=== PATIENT | female | born 1975 | race Caucasian/White ===

== ENCOUNTER 2025-02-13 08:49 | Outpatient (CLI) | payer OTHER, SELFPAY ==
--- OUTSIDE RECORDS SUMMARY | 2025-02-13 08:54 | XMS_ITS | Clinical Summary ---
Author Organization [facility] Address [address] [facility] [place] [address] Phone Care Team Providers Care Supervisor Correspondence Section Name Role Phone Donaldo Chavez MD Primary Care Provider [phone] Camille Juan MD Unavailable [phone] Martín Larios MD Unavailable Tara López MD Unavailable Allergies Active Allergy Reactions Criticality Noted Date Comments Fish Allergy Shortness of Breath,Swelling Medications atorvastatin (LIPITOR) 10 MG TabletIndications: Mixed hyperlipidemia Take 1 Tablet by mouth daily. 90 Tablet 3 01/27/20 24 Active amLODIPine (NORVASC) 5 MG TabletIndications: Hypertension, essential TAKE 1 TABLET BY MOUTH DAILY 90 Tablet 1 09/02/19 25 Active glipiZIDE (GLUCOTROL XL) 5 MG TABLET SR 24 HRIndications:Type 2 diabetes mellitus without complication, without long-term current use of insulin TAKE 1 TABLET BY MOUTH DAILY 90 Tablet 1 10/30/19 25 Active lisinopril-hydroCH LOROthiazide (PRINZIDE, ZESTORETIC) 20-12.5 MG TabletIndications: Hypertension, essential TAKE 2 TABLETS BY MOUTH DAILY 180 Tablet 1 03/17/20 25 Active metFORMIN (GLUCOPHAGE-XR) 500 MG TABLET SR 24 HRIndications:Type 2 diabetes mellitus without complication, without long-term current use of insulin TAKE 2 TABLETS BY MOUTH TWICE DAILY 360 Tablet 1 01/01/20 25 Active semaglutide,0.25 or 0.5MG/DOS, (OZEMPIC) 2 MG/3ML Solution Pen-injectorIndica tions:Type 2 diabetes mellitus without complication, without long-term current use of insulin 0.5 mg by Subcutaneous route once a week. 3 mL 1 09/10/19 25 025 Discontin ued(Side effects) Active Problems Problem Noted Date Diagnosed Date ALIDA (obstructive sleep apnea) 08/13/2024 Irritable bowel syndrome with diarrhea Anxiety 11/23/2021 Iron deficiency anemia 06/26/2021 Type 2 diabetes mellitus wit hout complication, without long-term current use of insulin 02/21/2019 Mixed hyperlipidemia 08/15/2016 Class 3 severe obesity due t o excess calories with serious comorbidity and body mass index (BMI) of 45.0 to 49.9 in adult Hypertension, essential Resolved Problems Problem Noted Date Diagnosed Date Resolved Date Pneumonia of right upper lob e due to infectious organism 05/23/2024 08/14/2024 Ventral hernia with bowel obstruction 11/17/2020 11/17/2020 Overview (11/17/2020): Last Assessment & Plan: Continue diet as tolerates. From my standpoint it is okay if she returns to work as long she has light duty. She is set to see Plastic surgery this week as well. I have asked her to double check how long they would like her on lifting restrictions. Her last drain was removed yesterday. She will follow up with plastics for staple removal going forward. She will call us back with any further questions and concerns. She can continue to wear the abdominal binder for comfort. Incisional hernia 01/24/2017 Encounters Date Type Department Care Team Description 02/08/2025 8:55 AM CDT - 02/08/2025 11:59 PM CDT [facility] [address] [place] [address] Donaldo Chavez MD Discharge Disposition: Discharged to home or Selfcare 02/08/2025 Travel 02/07/2025 10:10 AM CDT Lab [facility] [place] [address] Lab, [place] [facility] Hypertension, essential; Type 2 diabetes mellitus without complication, without long-term current use of insulin; Mixed hyperlipidemia Discharge Disposition: Discharged to home or Selfcare 02/07/2025 8:15 AM CDT Office Visit [facility] [facility] [place] [phone] Donaldo Chavez MD Hypertension, essential (Primary Dx); Encounter for screening mammogram for breast cancer; Mixed hyperlipidemia; Type 2 diabetes mellitus without complication, without long-term current use of insulin; ALIDA (obstructive sleep apnea) Discharge Disposition: Discharged to home or Selfcare 02/07/2025 Results Follow-Up [facility] [address] [facility] [place] [place] [address] Donaldo Chavez MD BASIC METABOLIC PANEL W/ CALCIUM TOTAL, LIPID PANEL, HEMOGLOBIN A1C W/ ESTIMATED GLUCOSE 02/05/2025 Travel 12/29/2024 Refill [facility] [facility] [place] [place] [address] Nahun Ellison, [facility] Medication Refill from Last 3 Months Immunizations Immunization Administration Dates Next Due COVID-19, MRNA, LNP-S, BIVAL ENT , PFIZER, 30 MCG/0.3 ML (12+ Y/O) 06/23/2022 Covid-19, Mrna, Lnp-s, PF, 1 00 mcg/0.5 mL Dose (Moderna) 11/03/2020,09/25/2020 Influenza Vaccine 05/15/2024 Influenza Vaccine greater than 3 yrs 06/19/2015 Influenza Vaccine, Quadrivalent, PF 12/0 08/2022,06/22/2022,05/25/2021,2018,09/11/2014 Pneumococcal Vaccine Adult - 23 Valent 07/11/2019 Sars-cov-2 (Covid-19) Vaccin e, Unspecified 05/15/2024 TDAP Vaccine 02/19/2019 Tetanus Toxoid, Unspecified Formulation 08/15/2008 Family History Medical History Relation Name Comments No Known Problems Brother Anxiety disorder Daughter 1 Autism Daughter 1 Depression Daughter 1 Suicide Attempts Daughter 1 No Known Problems Daughter 2 High Cholesterol Father Hypertension Father No Known Problems Maternal Grandfather No Known Problems Maternal Grandmother Diabetes Mother Type II Hypertension Mother Cancer Paternal Grandfather Lung Dementia Paternal Grandmother No Known Problems Son Relation Name Status Comments Brother Alive Daughter 1 Alive Daughter 2 Alive Father Alive Maternal Grandfather Maternal Grandmother Mother Alive Paternal Grandfather Alive Paternal Grandmother Son Alive Social History Tobacco Use Types Packs/Day Years Used Date Smoking Tobacco: Former Cigarettes 1 17 2008 Smokeless Tobacco: Never Tobacco Cessation:Counseling Given: Not Answered Alcohol Use Standard Drinks/Week Comments No 0 (1 standard drink = 0.6 oz pur e alcohol) Social [employer] Utilities Answer Date Recorded In the past 12 months has [employer], gas, oil, or water Drobo threatened to shut off services in your home? No 01/26/2024 Social Connection and Isolation Panel Answer Date Recorded In a typical week, how many times do you talk on the phone with family, friends, or neighbors? More than three times a week 01/26/2024 How often do you get togethe r with friends or relatives? Twice a week 01/26/2024 How often do you attend [facility] or [facility] services? 1 to 4 times per year 01/26/2024 Do you belong to any clubs o r organizations such as christian groups, unions, fraternal or athletic groups, or school groups? Yes 01/26/2024 How often do you attend meet ings of the clubs or organizations you belong to? 1 to 4 times per year 01/26/2024 Are you , , di vorced, , never , or living with a partner? 01/26/2024 AUDIT-C Answer Date Recorded Q1: How often do you have a drink containing alcohol? Never 01/26/2024 Q2: How many drinks containi ng alcohol do you have on a typical day when you are drinking? Patient does not drink Q3: How often do you have si x or more drinks on one occasion? Never 01/26/2024 Overall Financial Resource Strain (CARDIA) Answe r Date Recorded How hard is it for you to pa y for the very basics like food, housing, medical care, and heating? Not very hard 01/26/2024 PHQ-2 Answer Date Recorded Total Score - Questions 1-9 0 01/14 [facility] Occupat ional [facility] - Occupational Stress Questionnaire Answer Date Recorded Do you feel stress - tense, restless, nervous, or anxious, or unable to sleep at night because your mind is troubled all the time - these days? Only a little 01/26/2024 Exercise Vital Sign Answer Date Recorde d On average, how many days pe r week do you engage in moderate to strenuous exercise (like a brisk walk)? 3 days 01/26/2024 On average, how many minutes do you engage in exercise at this level? 30 min 01/26/2024 Hunger Vital Sign Answer Date Recorded Within the past 12 months, y ou worried that your food would run out before you got the money to buy more. Never true 01/26/20 24 Within the past 12 months, t he food you bought just didn't last and you didn't have money to get more. Never true 01/26/2024 PRAPARE - Transportation Answer Date Re corded In the past 12 months, has l ack of transportation kept you from medical appointments or from getting medications? No 01/13 In the past 12 months, has l ack of transportation kept you from meetings, work, or from getting things needed for daily living? No 01/26/2024 Housing Stability Vital Sign Answer Jordan e Recorded In the last 12 months, was t here a time when you were not able to pay the mortgage or rent on time? No 01/26/2024 In the past 12 months, how m any times have you moved where you were living? 0 01/26/2024 At any time in the past 12 m [facility], were you homeless or living in a longterm (including now)? No 01/26/2024 Education Answer Date Recorded What is the highest level of school you have completed or the highest degree you have received? Associate degree: occupational, technical, or vocational program 01/04/2023 Sexually Active Control Partners Comments Yes Male Comments No Sex and Gender Information Value Date Recorded Sex Assigned at Female 07/23/2024 5:47 PM [employer]EL [employer]ER Legal Sex Female 9:39 PM CDT Gender Identity Female 07/23/2024 5:47 PM [employer]EL [employer]ER Sexual Orientation Straight 07/23/2024 5: 47 PM J[employer]EL FLAT SURFACER Last Filed Vital Signs Vital Sign Reading Time Taken Comments Blood Pressure 122/80 02/07/2025 7:58 AM CDT Pulse 101 02/07/2025 7:58 AM CDT Temperature 36.7 C (98.1 F) 02/07/2025 7:58 AM CDT Respiratory Rate 20 02/07/2025 7:58 AM CDT Oxygen Saturation 95% 02/07/2025 7:58 AM CDT Inhaled Oxygen Concentration - - Weight 132.4 kg (291 lb 12.8 oz) 02/07/2025 7:58 AM CDT Height 170.2 cm (5' 7) 02/07/2025 7:58 AM CDT Body Mass Index 45.7 02/07/2025 7:58 AM CDT Plan of Treatment Upcoming Encounters Date Type Department Care Team (Late st Contact Info) Description 08/29/2025 8:45 AM JEWEL FLAT SURFACER Office Visit [facility] - [place] [place] [phone] Donaldo Chavez MD [address] [place], [place] [id number] Health Maintenance Due Date Last Done Comments Diabetes: Foot Exam 1976 Hepatitis B Immunization (1 of 3 - 19+ 3-dose series) 10/19/1995 Mammogram 01/30/2019 01/30/2018, 01/13, 01/17/2017, Additional history exists Cologuard 2021 Immunochemical Fecal Occult Blood 2021 Diabetes: Eye Exam 01/26/2025 01/27/2024 Influenza Immunization (#1) 2025 10/0 08/2023, 07/15/2023, 06/22/2022, Additional history exists Diabetes: Hemoglobin A1c 08/09/202502/07/ 025, 08/09/2024, 01/27/2024, Additional history exists Diabetes: Nephropathy Screening 08/09/2025 08/09/2024, 01/27/2024, 07/15/2023, Additional history exists Colonoscopy 10/30/2027 10/29/2022 Colorectal Cancer Screening 10/30/2027 Td Immunization Every 10 Years (Adults With 1 Tdap) 02/19/2029 02/19/2019 Pneumococcal Immunization Combined (2 of 2 - PCV) 2041 07/11/2019 Postponed from 07/11/2020 (Lower Priority for Now) Respiratory Syncytial Virus (RSV) Immunization (Adult) (1 - 1-dose 75+ series) 10/19/2051 Cervical Cancer Screening (CCS) Discontinued Pap Smear Discontinued 03/19/2010 Discussion re Starting/Frequency of Mammograms Completed 01/30/2018, 01/30/2018, 01/17/2017, Additional history exists Hepatitis C Virus (HCV) Screening Completed 07/15/2023 SARS-COV-2 Immunization Completed 05/15/20 24, 06/23/2022, 06/24/2021, Additional history exists HPV/Cotest Discontinued Human Papillomavirus (HPV) Immunization Aged Out No longer eligible based on patient's age to complete this topic Meningococcal Immunization (ACWY) Aged Out No longer eligible based on patient's age to complete this topic Rotavirus Immunization Aged Out No lo nger eligible based on patient's age to complete this topic Procedures Procedure Name Priority Date/Time Associated Diagnosis Comments HEMOGLOBIN A1C W/ ESTIMATED GLUCOSE Routine 02/07/2025 8:35 AM CDT Type 2 diabetes mellitus without complication, without long-term current use of insulin LIPID PANEL Routine 02/07/2025 8:35 AM CDT Mixed hyperlipidemia Type 2 diabetes mellitus without complication, without long-term current use of insulin BASIC METABOLIC PANEL W/ CALCIUM TOTAL Routine 02/07/2025 8:35 AM CDT Hypertension, essential Type 2 diabetes mellitus without complication, without long-term current use of insulin CMP (COMPREHENSIVE METABOLIC PANEL) Routine 08/09/2024 8:37 AM JEWEL FLAT SURFACER Type 2 diabetes mellitus without complication, without long-term current use of insulin (HCC) Hypertension, essential Mixed hyperlipidemia Class 3 severe obesity due to excess calories with serious comorbidity and body mass index (BMI) of 45.0 to 49.9 in adult (HCC) DIABETIC BILATERAL RETINAL IMAGING WITH COMPUTERIZED INTERPRETATION Routine 01/27/2024 7:54 AM CDT Type 2 diabetes mellitus without complication, without long-term current use of insulin (HCC) HEPATITIS C ANTIBODY Routine 07/15/2023 10:48 AM JEWEL FLAT SURF[employer]ER Type 2 diabetes mellitus without complication, without long-term current use of insulin (HCC) ULISSES SCREENING BILATERAL DIGITAL W CAD W MICHAEL Routine 01/30/2018 PATHOLOGY CYTOLOGY SEAFOOD AND SERVICE MEAT MANAGER Routine 03/19/2010 from Last 3 Months or Most Recently Relevant to Health Maintenance Results * (ABNORMAL) HEMOGLOBIN A1C W/ ESTIMATED GLUCOSE (02/07/2025 8:35 AM CDT) HGB-A1C 6.5(H) 4.0 - 6.0 % 02/07/2025 12:13 PM CDT [facility] Est Average Glucose 139.9 mg/dL 02/07/2025 12:13 PM CDT [facility] Blood Venipuncture / Unknown 02/07/2025 8:35 AM CDT 02/07/2025 8:35 AM CDT Narrative [facility] - 02/07/2025 12:13 PM CDT HEMOGLOBIN A1C: DIABETIC PATIENTS: WELL-CONTROLLED: 6.2 - 7.0 INTERMEDIATE WELL-CONTROLLED: 7.0 - 9.0 POORLY-CONTROLLED: >9.0 Specimens containing greater than 5% of Hemoglobin F may result in lower than expected % HbA1C results. us Donaldo Chavez MD CHEMISTRY ORDERABLES Roxy owens Result [facility] [address] [place] [address] * (ABNORMAL) LIPID PANEL (02/07/2025 8:35 AM CDT) CHOLESTEROL 140 <200 mg/dL 02/07/2025 12:08 PM CDT [facility] TRIGLYCERIDES 177(H) <150 mg/dL 02/07/2025 12:08 PM CDT [facility] HDL CHOLESTEROL 29(L) >40 mg/dL 12:08 PM CDT [facility] LDL 76 <130 mg/dL 02/07/2025 12:08 PM CDT [facility] VLDL 35 10 - 50 mg/dL 02/07/2025 12:08 PM CDT [facility] CHOL/HDL RATIO 4.8(H) 0.0 - 4.4 02/07/2025 12:08 PM CDT [facility] NON-HDL CHOLESTEROL 111 <130 mg/dL 02/07/2025 12:08 PM CDT [facility] IS THE PATIENT REQUIRED TO BE FASTING? Yes 02/07/2025 12:08 PM CDT [facility] HAS THE PATIENT BEEN FASTING? Yes 02/07/2025 12:08 PM CDT [facility] Blood Venipuncture / Unknown 02/07/2025 8:35 AM CDT 02/07/2025 8:35 AM CDT us Donaldo Chavez MD CHEMISTRY ORDERABLES Roxy owens Result [facility] [address] [place] [address] * (ABNORMAL) BASIC METABOLIC PANEL W/ CALCIUM TOTAL (02/07/2025 8:35 AM CDT) SODIUM 138 136 - 145 mmol/L 02/07/2025 12:08 PM CDT [facility] POTASSIUM 4.5 3.5 - 5.1 mmol/L 02/07/2025 12:08 PM CDT [facility] CHLORIDE 102 98 - 107 mmol/L 02/07/2025 12:08 PM CDT [facility] CO2, VENOUS 26 22 - 30 mmol/L 02/07/2025 12:08 PM CDT [facility] ANION GAP 14.5 <18.0 mmol/L 02/07/2025 12:08 PM CDT [facility] GLUCOSE 117(H) 70 - 99 mg/dL 02/07/2025 12:08 PM CDT [facility] BUN 19(H) 5 - 18 mg/dL 02/07/2025 12:08 PM CDT [facility] CREATININE, BLOOD 0.63 0.60 - 1.00 mg/dL 02/07/2025 12:08 PM CDT [facility] BUN/CREATININE RATIO 30(H) 12 - 20 ratio 02/07/2025 12:08 PM T [facility] CALCIUM 9.8 8.7 - 10.5 mg/dL 02/07/2025 12:08 PM CDT [facility] IS THE PATIENT REQUIRED TO BE FASTING? No 02/07/2025 12:08 PM CDT [facility] GFR, ESTIMATED >60 >=60 02/07/2025 12:08 PM CDT [facility] Comment: Creatinine Clearance is the preferred criteria for selecting drug dose adjustments in renally impaired patients. The GFR is provided as additional pertinent clinical information. GFR is reported in mL/min/1.73 sq m. Calculation based on the Chronic Kidney Disease Epidemiology Collaboration (CKD- EPI) equation refit without adjustment for race. GFR, EST. >60 >=60 025 12:08 PM CDT [facility] GFR, EST. NONAFRICAN >60 >=60 02/07/2025 12:08 PM CDT [facility] Blood Venipuncture / Unknown 02/07/2025 8:35 AM CDT 02/07/2025 8:35 AM CDT us Donaldo Chavez MD CHEMISTRY ORDERABLES Roxy owens Result [facility] [address] [place] [address] * (ABNORMAL) CMP (COMPREHENSIVE METABOLIC PANEL) (08/09/2024 8:37 AM JEWEL FLAT SURFACER) SODIUM 140 136 - 145 mmol/L 08/09/2024 12:49 PM [facility] POTASSIUM 5.0 3.5 - 5.1 mmol/L 08/09/2024 12:49 PM [facility] CHLORIDE 99 98 - 107 mmol/L 08/09/2024 12:49 PM [facility] CO2, VENOUS 35(H) 22 - 30 mmol/L 08/09/2024 12:49 PM [facility] ANION GAP 11.0 <18.0 mmol/L 08/09/2024 12:49 PM [facility] GLUCOSE 240(H) 70 - 99 mg/dL 08/09/2024 12:49 PM [facility] BUN 14 5 - 18 mg/dL 08/09/2024 12:49 PM [facility] CREATININE, BLOOD 0.80 0.60 - 1.00 mg/dL 08/09/2024 12:49 PM [facility] BUN/CREATININE RATIO 18 12 - 20 ratio 08/09/2024 12:49 PM [facility] TOTAL PROTEIN 7.3 6.3 - 8.2 g/dL 08/09/2024 12:49 PM [facility] ALBUMIN 4.1 3.5 - 5.0 g/dL 08/09/2024 12:49 PM [facility] A/G RATIO 1.3 1.0 - 2.2 08/09/2024 12:49 PM [facility] CALCIUM 10.0 8.7 - 10.5 mg/dL 08/09/2024 12:49 PM [facility] T BILI 0.8 0.2 - 1.2 mg/dL 08/09/2024 12:49 PM JEWEL FLAT SURFACER [facility] SGOT (AST) 14 5 - 34 U/L 08/09/2024 12:49 PM JEWEL FLAT SURFACER [facility] SGPT (ALT) 24 0 - 55 U/L 08/09/2024 12:49 PM [facility] ALKALINE PHOSPHATASE 74 40 - 150 U/L 08/09/2024 12:49 PM JEWEL FLAT SURFACER [facility] IS THE PATIENT REQUIRED TO BE FASTING? Yes 08/09/2024 12:49 PM JEWEL FLAT SURFACER [facility] HAS THE PATIENT BEEN FASTING? Yes 08/09/2024 12:49 PM JEWEL FLAT SURFACER [facility] GFR, ESTIMATED >60 >=60 08/09/2024 12:49 PM [facility] Comment: Creatinine Clearance is the preferred criteria for selecting drug dose adjustments in renally impaired patients. The GFR is provided as additional pertinent clinical information. GFR is reported in mL/min/1.73 sq m. Calculation based on the Chronic Kidney Disease Epidemiology Collaboration (CKD- EPI) equation refit without adjustment for race. GFR, EST. >60 >=60 024 12:49 PM [facility] GFR, EST. NONAFRICAN >60 >=60 08/09/2024 12:49 PM [facility] Blood Venipuncture / Unknown 08/09/2024 8:37 AM JEWEL FLAT SURFACER 08/09/2024 8:37 AM JEWEL FLAT SURFACER us Nahun Ellison PAC CHEMISTRY ORDERABLES Final R esult [facility] [address] [place] [address] * (ABNORMAL) DIABETIC BILATERAL RETINAL IMAGING WITH COMPUTERIZED INTERPRETATION (01/27/2024 7:54 AM CDT) DIABETIC BILATERAL DIGITAL RETINAL IMAGING Diabetic Retinopathy Detected: ETDRS level 35 or higher and/or Diabetic Macular Edema(A) [facility] Comment: Next Steps: Refer to cabinet professional IDx Submission ID: [id number] Results were produced by a system that provides an artificial intelligence (AI) interpretation A positive result indicates a high risk of diabetic retinopathy with a severity of ETDRS level 35 or higher and/or macular edema. IDx-DR diabetic retinopathy exam does not replace a comprehensive eye exam. Other 01/27/2024 7:54 AM CDT Nahun Ellison PAC OUTPT PROCEDURE ORDERABLES F inal Result EXTERNAL EKG [facility] * HEPATITIS C ANTIBODY (07/15/2023 10:48 AM JEWEL FLAT SURFACER) hepatitis C antibody 0.13 <1 S/[facility] [place] [id number] B 07/16/2023 12:37 AM JEWEL FLAT SURFACER [facility] Comment: Signal/Cutoff ratio < 0.79 is Nondetected Signal/Cutoff ratio 0.80-0.99 is Grayzone Signal/Cutoff ratio > 0.99 is Detected Supplemental assays are recommended if signal/cutoff ratio is >/=1.00. Signal/cutoff ratio result >/= 5.00 is 97% predictive of positivity for recombinant immunoblot assay (RIBA) and will be reported to the [place] Department of Public Health as required. Blood Venipuncture / Unknown 07/15/2023 10:48 AM JEWEL FLAT SURFACER 07/15/2023 10:48 AM JEWEL FLAT SURFACER Donaldo Chavez MD CHEMISTRY ORDERABLES Roxy l Result Performing Organization Address City/[facility]/ZIP Co de Phone Number [facility] [address] [place] [address], [place] * ULISSES SCREENING BILATERAL DIGITAL W CAD W MICHAEL (01/30/2018) Anatomical Region Laterality Modality breast Bilateral Mammography Camille Juan MD IMG MAMMO ORDERABLES Final Resu lt * PATHOLOGY CYTOLOGY SEAFOOD AND SERVICE MEAT MANAGER (03/19/2010) Specimen of unknown material (specimen) Janee A Chapin CONSERVATION SCIENCE OFFICER, OFFICE CORRESPONDENT PATHOLOGY/CYTOLOGY ORDER DHRUV Final Result from Last 3 Months or Most Recently Relevant to Health Maintenance Insurance [place] [address] Care Teams Supervisor Correspondence Section Relationship Specialty Start Date End Date Donaldo Chavez MD [address] [place] [address] PCP - General Internal Medicine 06/30/15 Camille Juan MD [address] [place] [address] Consulting Physician Obstetrics & Gynecology 01/24/17 Martín Larios MD [address] [facility] [address] [place] [address] Consulting Physician Colon and Rectal Surgery 11/25/22 Tara López MD [address] [place] [address] [facility] [address] [place] [address] Consulting Physician Sleep Medicine 02/07/25
--- OUTSIDE RECORDS SUMMARY | 2025-02-13 08:54 | XMS_ITS | Encounter Summary ---
Author Organization [facility] Address [address] [place] [address] Phone Care Team Providers Care Director For Beauty School Name Role Phone Donaldo Chavez MD Primary Care Provider [phone] Camille Juan MD Unavailable [phone] Martín Larios MD Unavailable Tara López MD Unavailable Reason for Visit * Reason Onset Date Comments Medication Refill 09/25/2020 Encounter Details Date Type Department Care Team (Late st Contact Info) Description 09/25/2020 Telephone [facility] [address] [place] [address] Donaldo Chavez MD [address] [place] [address] Medication Refill Social History Tobacco Use Types Packs/Day Years Used Date Smoking Tobacco: Former Cigarettes 1 16 Smokeless Tobacco: Never Alcohol Use Standard Drinks/Week Comments No 0 (1 standard drink = 0.6 oz pur e alcohol) Social PHQ-2 Answer Date Recorded Total Score - Questions 1-9 0 03/15 Education Answer Date Recorded What is the highest level of school you have completed or the highest degree you have received? Associate degree: academic program 03/26/2020 Comments No Sex and Gender Information Value Date Recorded Sex Assigned at Female 07/23/2024 5:47 PM CO FOUNDER & CEO Legal Sex Female 9:39 PM CDT Gender Identity Female 07/23/2024 5:47 PM CO FOUNDER & CEO Sexual Orientation Straight 07/23/2024 5: 47 PM CO FOUNDER & CEO documented as of this encounter Miscellaneous Notes * Telephone Encounter - Rupal Genao - 09/25/2020 4:28 PM CST Images from the original note were not included. FOUNDER & CEO documented in this encounter Plan of Treatment Upcoming Encounters Date Type Department Care Team (Late st Contact Info) Description 08/29/2025 8:45 AM CO FOUNDER & CEO Office [facility] - Primary Care - [place] [address] [place] [address] Donaldo Chavez MD [address] [place] [address] documented as of this encounter Visit Diagnoses Not on filedocumented in this encounter Additional Health Concerns Infection Onset Date Last Indicated Resolved Time COVID - 19 08/25/2021 08/25/2021 08/25/2021 9:59 AM CO FOUNDER & CEO COVID - 19 08/25/2021 08/25/2021 09/14/2021 12:1 6 AM CO FOUNDER & CEO Assessment Noted Time PHQ-9 Depression Total Score: 0 03/26/20 20 11:00 AM CDT documented as of this encounter Care Teams Director For Beauty School Relationship Specialty Start Date End Date Donaldo Chavez MD [address] [place] [address] PCP - General Internal Medicine 06/30/15 Camille Juan MD [address] [place] [address] Consulting Physician Obstetrics & Gynecology 01/24/17 Martín Larios MD #2 [facility] [address] [place] [address] Consulting Physician Colon and Rectal Surgery 11/25/22 Tara López MD [address] [place] [address] [address] [place] [address] Consulting Physician Sleep Medicine 02/07/25 documented as of this encounter
--- OUTSIDE RECORDS SUMMARY | 2025-02-13 08:55 | XMS_ITS | Encounter Summary ---
Author Organization [facility] Address [address] [place] [address] Phone Care Team Providers Care Physician Primary Care Sports Medicine Name Role Phone Donaldo Chavez MD Primary Care Provider [phone] Camille Juan MD Unavailable [phone] Martín Morales MD Unavailable Tara López MD Unavailable Reason for Visit * Reason Comments Medication Refill Encounter Details Date Type Department Care Team (Late st Contact Info) Description 03/05/2022 Refill [facility] - Primary Care - [place] [address] [place] [address] Donaldo Chavez MD [address] [place] [address] Medication Refill Social History Tobacco Use Types Packs/Day Years Used Date Smoking Tobacco: Former Cigarettes 1 16 Smokeless Tobacco: Never Alcohol Use Standard Drinks/Week Comments No 0 (1 standard drink = 0.6 oz pur e alcohol) Social PHQ-2 Answer Date Recorded Total Score - Questions 1-9 0 11/13 Education Answer Date Recorded What is the highest level of school you have completed or the highest degree you have received? Some college, no degree 11/23/2021 Comments No Sex and Gender Information Value Date Recorded Sex Assigned at Female 07/23/2024 5:47 PM STEEL ROD BUSTER Legal Sex Female 9:39 PM CDT Gender Identity Female 07/23/2024 5:47 PM STEEL ROD BUSTER Sexual Orientation Straight 07/23/2024 5: 47 PM STEEL ROD BUSTER COVID-19 Exposure Response Date Recorded In the last 10 days, have yo u been in contact with someone who was confirmed or suspected to have Coronavirus/COVID-19? No / Unsure 02/19/2022 8:53 AM CDT documented as of this encounter Miscellaneous Notes * Telephone Encounter - Zari Mon RN - 03/05/2022 8:00 AM CDT Refill request too soon. documented in this encounter Plan of Treatment Upcoming Encounters Date Type Department Care Team (Late st Contact Info) Description 08/29/2025 8:45 AM STEEL ROD BUSTER Office Visit [facility] - Primary Care - [place] [address] [place] [address] Donalod Chavez MD [address] [place] [address] documented as of this encounter Visit Diagnoses Diagnosis Type 2 diabetes mellitus without complication, without long-term current use of insulin documented in this encounter Additional Health Concerns Assessment Noted Time PHQ-9 Depression Total Score: 0 11/18/19 21 10:00 AM CDT documented as of this encounter Care Teams Physician Primary Care Sports Medicine Relationship Specialty Start Date End Date Donaldo Chavez MD [address] [place] [address] PCP - General Internal Medicine 06/30/15 Camille Juan MD [address] [place] [address] Consulting Physician Obstetrics & Gynecology 01/24/17 Martín Larios MD #2 [facility] [address] [place] [address] Consulting Physician Colon and Rectal Surgery 11/25/22 Tara López MD 4 [facility] [address] [place] [address] Consulting Physician Sleep Medicine 02/07/25 documented as of this encounter
--- OUTSIDE RECORDS SUMMARY | 2025-02-13 08:55 | XMS_ITS | Encounter Summary ---
Author Organization [facility] Address [address] [place] [address] Phone Care Team Providers Care Firer Electric Locomotive Name Role Phone Donaldo Chavez MD Primary Care Provider [phone] Camille Juan MD Unavailable [phone] Martín Morales MD Unavailable Tara López MD Unavailable Reason for Visit * Reason Comments Medication Refill Encounter Details Date Type Department Care Team (Late st Contact Info) Description 02/15/2022 Refill [facility] - Primary Care - [place] [address] [place] [address] Donaldo Chavez MD [address] [place] [address] Medication Refill Social History Tobacco [...] Sex Assigned at Female 07/23/2024 5:47 PM WARP DRAWER Legal Sex Female 9:39 PM CDT Gender Identity Female 07/23/2024 5:47 PM WARP DRAWER Sexual Orientation Straight 07/23/2024 5: 47 PM WARP DRAWER documented as of this encounter Miscellaneous Notes * Telephone Encounter - Donaldo Chavez MD - 02/16/2022 8:31 AM CDT Refill request approved. * Telephone Encounter - Zari Mon RN - 02/16/2022 8:17 AM CDT Medication failed the protocol, provider to review and approve the medication order if appropriate. Requested Prescriptions Pending Prescriptions Disp Refills FLUoxetine (PROzac) 10 MG Capsule [Pharmacy Med Name: FLUOXETINE 10MG CAPSULES] 90 Capsule 0 Sig: Take 1 Capsule by mouth daily. SSRI (6 Month Refill Only) Protocol Failed - 02/15/2022 3:30 AM Failed - Patient has established therapy with SSRI for at least 6 months Passed - Visit with relevant provider in past 6 months or upcoming 90 days Recent Visits Date Type Provider Dept 11/23/21 Office Visit Donaldo Chavez MD [facility] Showing recent visits within past 182 days and meeting all other requirements Future Appointments No visits were found meeting these conditions. Showing future appointments within next 90 days and meeting all other requirements Passed - Has an encounter in the past 6 months with a depression, anxiety, adjustment disorder, OCD, or PTSD visit diagnosis documented in this encounter Plan of Treatment Upcoming Encounters Date Type Department Care Team (Late st Contact Info) Description 08/29/2025 8:45 AM WARP DRAWER Office Visit [facility] - Primary Care - [place] [address] [place] [address] Donaldo Chavez MD [address] [place] [address] documented as of this encounter Visit Diagnoses Diagnosis Anxiety Anxiety state, unspecified documented in this encounter Additional Health Concerns Assessment Noted Time PHQ-9 Depression Total Score: 0 11/18/19 21 10:00 AM CDT documented as of this encounter Care Teams Firer Electric Locomotive Relationship Specialty Start Date End Date Donaldo Chavez MD [address] [place] [address] PCP - General Internal Medicine 06/30/15 Camille Juan MD [address] [place] [address] Consulting Physician Obstetrics & Gynecology 01/24/17 Martín Larios MD #[address] [address] Consulting Physician Colon and Rectal Surgery 11/25/22 Tara López MD [address] [place] [address] Consulting Physician Sleep Medicine 02/07/25 documented as of this encounter
--- OUTSIDE RECORDS SUMMARY | 2025-02-13 08:55 | XMS_ITS | Encounter Summary ---
Author Organization [facility] Address [address] [place] [address] Phone Care Team Providers Care Jackspooler Name Role Phone Donaldo Chavez MD Primary Care Provider [phone] Camille Juan MD Unavailable [phone] Martín Morales MD Unavailable Tara López MD Unavailable Reason for Visit * Reason Comments Medication Refill Encounter Details Date Type Department Care Team (Late st Contact Info) Description 01/04/2022 Refill [facility] - Primary Care - [place] [address] [place] [address] Donaldo Chavez MD [address] [place] [address] Medication Refill Social History Tobacco [...] Sex Assigned at Female 07/23/2024 5:47 PM BULK DELIVERY DRIVER Legal Sex Female 9:39 PM CDT Gender Identity Female 07/23/2024 5:47 PM BULK DELIVERY DRIVER Sexual Orientation Straight 07/23/2024 5: 47 PM BULK DELIVERY DRIVER documented as of this encounter Miscellaneous Notes * Telephone Encounter - Zari Mon RN - 01/04/2022 8:06 AM CDT Refill request too soon. documented in this encounter Plan of Treatment Upcoming Encounters Date Type Department Care Team (Late st Contact Info) Description 08/29/2025 8:45 AM BULK DELIVERY DRIVER [facility] Care - [place] [address] [place] [address] Donaldo Chavez MD [address] [place] [address] documented as of this encounter Visit Diagnoses Diagnosis Type 2 diabetes mellitus without complication, without long-term current use of insulin documented in this encounter Additional Health Concerns Assessment Noted Time PHQ-9 Depression Total Score: 0 11/18/19 21 10:00 AM CDT documented as of this encounter Care Teams Jackspooler Relationship Specialty Start Date End Date Donaldo Chavez MD [address] [place] [address] PCP - General Internal Medicine 06/30/15 Camille Juan MD [address] [place] [address] Consulting Physician Obstetrics & Gynecology 01/24/17 Martín Larios MD #[address] [address] Consulting Physician Colon and Rectal Surgery 11/25/22 Tara López MD 4 [facility], [address] [address] Consulting Physician Sleep Medicine 02/07/25 documented as of this encounter
--- OUTSIDE RECORDS SUMMARY | 2025-02-13 08:55 | XMS_ITS | Encounter Summary ---
Author Organization [facility] Address [address] [place] [address] Phone Care Team Providers Care Baccarat Dealer Name Role Phone Donaldo Chavez MD Primary Care Provider [phone] Camille Juan MD Unavailable [phone] Martín Morales MD Unavailable Tara López MD Unavailable Reason for Visit * Reason Comments Medication Refill Encounter Details Date Type Department Care Team (Late st Contact Info) Description 12/15/2023 Refill [facility] - Primary Care - [place] [address] [place] [address] Donaldo Chavez MD [address] [place] [address] Medication Refill Social History Tobacco Use Types Packs/Day Years Used Date Smoking Tobacco: Former Cigarettes 1 - 2008 Smokeless Tobacco: Never Alcohol Use Standard Drinks/Week Comments No 0 (1 standard drink = 0.6 oz pur e alcohol) Social PHQ-2 Answer Date Recorded Total Score - Questions 1-9 0 12/0 08/2022 Education Answer Date Recorded What is the highest level of school you have completed or the highest degree you have received? Associate degree: occupational, technical, or vocational program 01/04/2023 Sexually Active Control Partners Comments Yes Male Comments No Sex and Gender Information Value Date Recorded Sex Assigned at Female 07/23/2024 5:47 PM AUTOMATIC ENGRAVER Legal Sex Female 9:39 PM CDT Gender Identity Female 07/23/2024 5:47 PM AUTOMATIC ENGRAVER Sexual Orientation Straight 07/23/2024 5: 47 PM AUTOMATIC ENGRAVER documented as of this encounter Plan of Treatment Upcoming Encounters Date Type Department Care Team (Late st Contact Info) Description 08/29/2025 8:45 AM AUTOMATIC ENGRAVER Office Visit [facility] - Primary Care - [place] [address] [place] [address] Donaldo Chavez MD [address] [place] [address] documented as of this encounter Visit Diagnoses Diagnosis Type 2 diabetes mellitus without complication, without long-term current use of insulin documented in this encounter Additional Health Concerns Assessment Noted Time PHQ-9 Depression Total Score: 0 07/15/20 10:00 AM AUTOMATIC ENGRAVER documented as of this encounter Care Teams Baccarat Dealer Relationship Specialty Start Date End Date Donaldo Chavez MD [address] [place] [address] PCP - General Internal Medicine 06/30/15 Camille Juan MD [address] [place] [address] Consulting Physician Obstetrics & Gynecology 01/24/17 Martín Larios MD #2 [facility] [address] [place] [address] Consulting Physician Colon and Rectal Surgery 11/25/22 Tara López MD [address] [place] [address] [facility] [address] [place] [address] Consulting Physician Sleep Medicine 02/07/25 documented as of this encounter
--- OUTSIDE RECORDS SUMMARY | 2025-02-13 08:55 | XMS_ITS | Clinical Summary ---
Author Organization [facility] Address [address] [place] [address] Care Team Providers Care Grounds Crew Supervisor Name Role Phone Unavailable Primary Care Provider Unavailabl e Source Comments [facility],non-owned Affiliates and Associated Physician Practices is amultiple site organization consisting of ambulatory clinics and hospital sitesin [place], [place], [place] and [place]. This disclosure is being madepursuant to the Care Everywhere program and may not contain all information available regarding this patient. Last updated 18.[facility] [place] Social History Tobacco Use Types Packs/Day Years Used Date Smoking Tobacco: Never Assessed Comments Unknown Sex and Gender Information Value Date Recorded Sex Assigned at Not on file Legal Sex Female 6:01 AM ASSEMBLER WIRE GROUP Gender Identity Not on file Sexual Orientation Not on file Plan of Treatment Health Maintenance Due Date Last Done Comments COLOGUARD (AGES 45-75) - COL ON CA SCREENING 1976 COLON MONITORING 1976 COLONOSCOPY - COLON CA SCREENING 1976 CT COLONOGRAPHY - COLON CA SCREENING 1976 Colorectal Cancer Screening 1976 FIT - COLON CA SCREENING 1976 FLEX SIG - COLON CA SCREENING 1976 LIPID TESTING 1976 MAMMOGRAM 1976 HIV SCREENING 10/19/1991 HEPATITIS C SCREENING 10/14/1994 DTAP/TDAP/TD VACCINES (1 - Tdap) 10/19/1995 HEPATITIS B VACCINE (1 of 3 - 19+ 3-dose series) 10/19/1995 PAP SMEAR 1997 COVID-19 VACCINE ( - 2023-2 5 season) 2024 DEPRESSION SCREENING 08/15/2024 INFLUENZA VACCINE (Season Ended) 2025 ZOSTER VACCINE (1 of 2) 2026 HIB VACCINE Aged Out No longer eligi ble based on patient's age to complete this topic HPV VACCINE Aged Out No longer eligi ble based on patient's age to complete this topic MENINGOCOCCAL (Group B) VACC INE SHARED DECISION-MAKING Aged Out No longer eligibl e based on patient's age to complete this topic MENINGOCOCCAL GROUPS A/C/Y/W VACCINE Aged Out No longer eligible b ased on patient's age to complete this topic PNEUMOCOCCAL VACCINE Aged Out No long er eligible based on patient's age to complete this topic Insurance [id number] [id number]
--- OUTSIDE RECORDS SUMMARY | 2025-02-13 08:55 | XMS_ITS | Encounter Summary ---
Author Organization [facility] Address [address] [place] [address] Phone Care Team Providers Care Social Welfare Clerk Name Role Phone Donaldo Chavez MD Primary Care Provider [phone] Camille Juan MD Unavailable [phone] Martín Larios MD Unavailable Tara López MD Unavailable Reason for Visit * Reason Comments Medication Refill Encounter Details Date Type Department Care Team (Late st Contact Info) Description 03/29/2021 Refill [facility] - Primary Care - [place] [address] [place] [address] Donaldo Chavez MD [address] [place] [address] Medication Refill Social History Tobacco Use Types Packs/Day Years Used Date Smoking Tobacco: Former Cigarettes 1 16 Smokeless Tobacco: Never Alcohol Use Standard Drinks/Week Comments No 0 (1 standard drink = 0.6 oz pur e alcohol) Social PHQ-2 Answer Date Recorded Total Score - Questions 1-9 0 04/0 12/2020 Education Answer Date Recorded What is the highest level of school you have completed or the highest degree you have received? Associate degree: occupational, technical, or vocational program 11/17/2020 Comments No Sex and Gender Information Value Date Recorded Sex Assigned at Female 07/23/2024 5:47 PM REVENUE INVESTIGATOR Legal Sex Female 9:39 PM CDT Gender Identity Female 07/23/2024 5:47 PM REVENUE INVESTIGATOR Sexual Orientation Straight 07/23/2024 5: 47 PM REVENUE INVESTIGATOR documented as of this encounter Plan of Treatment Upcoming Encounters Date Type Department Care Team (Late st Contact Info) Description 08/29/2025 8:45 AM REVENUE INVESTIGATOR Office Visit [facility] - Primary Care - [place] [address] [place] [address] Donaldo Chavez MD [address] [place] [address] documented as of this encounter Visit Diagnoses Diagnosis Hypertension, essential Unspecified essential hypertension documented in this encounter Additional Health Concerns Infection Onset Date Last Indicated Resolved Time COVID - 19 08/25/2021 08/25/2021 08/25/2021 9:59 AM REVENUE INVESTIGATOR COVID - 19 08/25/2021 08/25/2021 09/14/2021 12:1 6 AM REVENUE INVESTIGATOR Assessment Noted Time PHQ-9 Depression Total Score: 0 11/18/19 21 10:00 AM CDT documented as of this encounter Care Teams Social Welfare Clerk Relationship Specialty Start Date End Date Donaldo Chavez MD [address] [place] [address] PCP - General Internal Medicine 06/30/15 Camille Juan MD [address] [place] [address] Consulting Physician Obstetrics & Gynecology 01/24/17 Martín Larios MD #[address] [address] Consulting Physician Colon and Rectal Surgery 11/25/22 Tara López MD 4 [facility], [address] [address] Consulting Physician Sleep Medicine 02/07/25 documented as of this encounter
--- OUTSIDE RECORDS SUMMARY | 2025-02-13 08:55 | XMS_ITS | Encounter Summary ---
Author Organization [facility] Address [address] [place] [address] Phone Care Team Providers Care Technical Marketing Consultant Name Role Phone Donaldo Chavez MD Primary Care Provider [phone] Camille Juan MD Unavailable [phone] Martín Morales MD Unavailable Tara López MD Unavailable Reason for Visit * Reason Comments Medication Refill Encounter Details Date Type Department Care Team (Late st Contact Info) Description 04/20/2024 Refill [facility] - Primary Care - [place] [address] [place] [address] Donaldo Chavez MD [address] [place] [address] Medication Refill Social History Tobacco Use Types Packs/Day Years Used Date Smoking Tobacco: Former Cigarettes 1 17 - 2008 Smokeless Tobacco: Never Alcohol Use Standard Drinks/Week Comments No 0 (1 standard drink = 0.6 oz pur e alcohol) Social C Utilities Answer Date Recorded In the past 12 months has [employer], gas, oil, or water company threatened to shut off services in your home? No 01/26/2024 Social Connection and Isolation Panel Answer Date Recorded In a typical week, how many times do you talk on the phone with family, friends, or neighbors? More than three times a week 01/26/2024 How often do you get togethe r with friends or relatives? Twice a week 01/26/2024 How often do you attend chur ch or nondenominational services? 1 to 4 times per year 01/26/2024 Do you belong to any clubs o r organizations such as baptism groups, unions, fraternal or athletic groups, or [...] Recorded Total Score - Questions 1-9 0 01/13 [facility] - Occupational Stress Questionnaire Answer Date [...] any time in the past 12 m onths, were you homeless or living in a group home (including now)? No 01/26/2024 Education Answer Date Recorded What is the highest level of school you have completed or the highest degree you have received? Associate degree: occupational, technical, or vocational program 01/04/2023 Sexually Active Control Partners Comments Yes Male Comments No Sex and Gender Information Value Date Recorded Sex Assigned at Female 07/23/2024 5:47 PM [employer] Legal Sex Female 9:39 PM CDT Gender Identity Female 07/23/2024 5:47 PM [employer] Sexual Orientation Straight 07/23/2024 5: 47 PM [employer] documented as of this encounter Miscellaneous Notes * Telephone Encounter - Gianni Tineo RN - 04/20/2024 8:39 AM CDT Refill requested too soon. documented in this encounter Plan of Treatment Upcoming Encounters Date Type Department Care Team (Late st Contact Info) Description 08/29/2025 8:45 AM EPIC [employer] SPECIALISTS Office Visit [facility] - Primary Care - [place] [address] [place] [address] Donaldo Chavez MD [address] [place] [address] documented as of this encounter Visit Diagnoses Diagnosis Hypertension, essential Unspecified essential hypertension documented in this encounter Additional Health Concerns Assessment Noted Time PHQ-9 Depression Total Score: 0 01/27/20 24 7:35 AM CDT documented as of this encounter Care Teams Technical Marketing Consultant Relationship Specialty Start Date End Date Donaldo Chavez MD [address] [place] [address] PCP - General Internal Medicine 06/30/15 Camille Juan MD [address] [place] [address] Consulting Physician Obstetrics & Gynecology 01/24/17 Martín Larios MD #[address] [address] Consulting Physician Colon and Rectal Surgery 11/25/22 Tara López MD [address] [place] [address] [address] [place] [address] Consulting Physician Sleep Medicine 02/07/25 documented as of this encounter
--- OUTSIDE RECORDS SUMMARY | 2025-02-13 08:55 | XMS_ITS | Encounter Summary ---
Author Organization [facility] Address [address] [place] [address] Phone Care Team Providers Care Supervising Broker Name Role Phone Donaldo Chavez MD Primary Care Provider [phone] Camille Juan MD Unavailable [phone] Martín Larios MD Unavailable Tara López MD Unavailable Reason for Visit * Reason Comments Medication Refill Encounter Details Date Type Department Care Team (Late st Contact Info) Description 09/13/2021 Refill [facility] - Primary Care - [place] [address] [address] Donaldo Chavez MD [address] [place] [address] Medication Refill Social History Tobacco [...] Sex Assigned at Female 07/23/2024 5:47 PM WASTE OIL PUMPER Legal Sex Female 9:39 PM CDT Gender Identity Female 07/23/2024 5:47 PM WASTE OIL PUMPER Sexual Orientation Straight 07/23/2024 5: 47 PM WASTE OIL PUMPER documented as of this encounter Miscellaneous Notes * Telephone Encounter - Chana Angel RN - 09/14/2021 11:57 AM WASTE OIL PUMPER Medication approved and signed per standing order protocol. E OIL PUMPER documented in this encounter Plan of Treatment Upcoming Encounters Date Type Department Care Team (Late st Contact Info) Description 08/29/2025 8:45 AM WASTE OIL PUMPER Office Visit F [facility] - Primary Care - [place] [address] [place] [address] Donaldo Chavez MD [address] [place] [address] documented as of this encounter Visit Diagnoses Diagnosis Hypertension, essential Unspecified essential hypertension documented in this encounter Additional Health Concerns Infection Onset Date Last Indicated Resolved Time COVID - 19 08/25/2021 08/25/2021 09/14/2021 12:1 6 AM WASTE OIL PUMPER Assessment Noted Time PHQ-9 Depression Total Score: 0 11/18/19 21 10:00 AM CDT documented as of this encounter Care Teams Supervising Broker Relationship Specialty Start Date End Date Donaldo Chavez MD [address] [place] [address] PCP - General Internal Medicine 06/30/15 Camille Juan MD [address] [place] [address] Consulting Physician Obstetrics & Gynecology 01/24/17 Martín Larios MD [address]2 [facility] [address] [place] [address] Consulting Physician Colon and Rectal Surgery 11/25/22 Tara López MD [address] [place] [address] [address] [place] [address] Consulting Physician Sleep Medicine 02/07/25 documented as of this encounter
--- OUTSIDE RECORDS SUMMARY | 2025-02-13 08:55 | XMS_ITS | Encounter Summary ---
Author Organization [facility] Address [address] [place] [address] Phone Care Team Providers Care Simulation Technician Name Role Phone Donaldo Chavez MD Primary Care Provider [phone] Camille Juan MD Unavailable [phone] Martín Morales MD Unavailable Tara López MD Unavailable Reason for Visit * Reason Comments Medication Refill Encounter Details Date Type Department Care Team (Late st Contact Info) Description 01/17/2024 Refill [facility] - Primary Care - [place] [address] [place] [address] Donaldo Chavez MD [address] [place] [address] Medication Refill Social History Tobacco [...] Sex Assigned at Female 07/23/2024 5:47 PM BRACELET AND BROOCH MAKER Legal Sex Female 9:39 PM CDT Gender Identity Female 07/23/2024 5:47 PM BRACELET AND BROOCH MAKER Sexual Orientation Straight 07/23/2024 5: 47 PM BRACELET AND BROOCH MAKER documented as of this encounter Miscellaneous Notes * Telephone Encounter - Gianni Tineo RN - 01/17/2024 8:02 AM CDT Medication failed the protocol, provider to review and approve the medication order if appropriate. Requested Prescriptions Pending Prescriptions Disp Refills FLUoxetine (PROzac) 10 MG Capsule [Pharmacy Med Name: FLUOXETINE 10MG CAPSULES] 90 Capsule 0 Sig: TAKE 1 CAPSULE BY MOUTH DAILY SSRI (6 Month Refill Only) Protocol Failed - 01/17/2024 3:30 AM Failed - Has an encounter in the past 6 months with a depression, anxiety, adjustment disorder, OCD, or PTSD visit diagnosis Passed - Visit with relevant provider in past 6 months or upcoming 90 days Recent Visits No visits were found meeting these conditions. Showing recent visits within past 182 days and meeting all other requirements Future Appointments Date Type Provider Dept 01/25/24 Appointment Nahun Ellison PAC [facility] Showing future appointments within next 90 days and meeting all other requirements Passed - Patient has established therapy with SSRI for at least 6 months documented in this encounter Plan of Treatment Upcoming Encounters Date Type Department Care Team (Late st Contact Info) Description 08/29/2025 8:45 AM BRACELET AND BROOCH MAKER Office Visit [facility] - Primary Care - [place] [address] [place] [address] Donaldo Chavez MD [address] [place] [address] documented as of this encounter Visit Diagnoses Diagnosis Anxiety Anxiety state, unspecified documented in this encounter Additional Health Concerns Assessment Noted Time PHQ-9 Depression Total Score: 0 07/15/20 23 10:00 AM BRACELET AND BROOCH MAKER documented as of this encounter Care Teams Simulation Technician Relationship Specialty Start Date End Date Donaldo Chavez MD [address] [place] [address] PCP - General Internal Medicine 06/30/15 Camille Juan MD [address] [address] Consulting Physician Obstetrics & Gynecology 01/24/17 Martín Larios MD #[address] [address] Consulting Physician Colon and Rectal Surgery 11/25/22 Tara López MD [address] [place] [address] Consulting Physician Sleep Medicine 02/07/25 documented as of this encounter
--- OUTSIDE RECORDS SUMMARY | 2025-02-13 08:55 | XMS_ITS | Referral Summary ---
Author Organization [facility] Address [address] [place] [address] Care Team Providers Care Flight Dispatcher Name Role Phone Donaldo Chavez MD Primary Care Provider + Michael Mckoy MD Unavailable Alfa Alvarez MD Unavailable Tara López MD Unavailable Encounters Date Type Department Care Team Description 11/26/2024 Telephone [facility] [address] [place] [address] Luz Coppola MA 11/23/[address] [facility] [address] [facility] [place] [address] Trent Vazquez, COLD ROLL PACKER SHEET IRON 11/22/2024 1:15 PM CDT E-Visit [facility] Virtual Care [address] [place] [address] Estelita Vazquez NP Your Medications 11/22/2024 Patient Self-Triage [facility] [address] [place] [address] Mychart, Generic Provider from Last 3 Months Allergies Active Allergy Reactions Criticality Noted Date Comments Fish Containing Products Shortness of breath High Medications lisinopril-hydroC HLOROthiazide (ZESTORETIC) 20-12.5 mg per tablet Take 2 tablets by mouth daily 9 Active metFORMIN XR (GLUCOPHAGE XR) 500 mg 24 hr tablet Take 1 tablet (500 mg total) by mouth 2 (two) times a day 0 Active atorvastatin (LIPITOR) 10 mg tablet Take 1 tablet (10 mg total) by mouth daily 3 Active FLUoxetine 10 mg capsule Take 1 tablet/capsule (10 mg total) by mouth daily 3 Active glipiZIDE XL (GLUCOTROL XL) 5 mg 24 hr tablet Take 1 tablet (5 mg total) by mouth daily 2 Active fluticasone propionate (FLONASE) 50 mcg/actuation nasal spray Administer 1 spray into each nostril daily 4 Active fluticasone-umecl idin-vilanter (TRELEGY ELLIPTA) 100-62.5-25 mcg inhalerIndication s:Bronchospasm Prevention with COPD Inhale 1 puff daily 28 each 1 4 Active ipratropium-albut Becky (COMBIVENT RESPIMAT) 20-100 mcg/actuation inhalerIndication s:Chronic Obstructive Pulmonary Disease with Bronchospasms Inhale 1 puff every 4 (four) hours as needed for wheezing or shortness of breath 4 g 1 4 Active amLODIPine (NORVASC) 5 mg tablet Take 1 tablet (5 mg total) by mouth daily 4 Active azithromycin (ZITHROMAX) 250 mg tablet Take 2 tabs (500 mg) by mouth today, than 1 daily for 4 days. 6 tablet 5 Active Active Problems Problem Noted Date Diagnosed Date ALIDA (obstructive sleep apnea) 08/13/2024 Acute respiratory failure with hypercapnia 05/25 Hypoxia 05/25/2024 Class 3 severe obesity due t o excess calories with serious comorbidity and body mass index (BMI) of 45.0 to 49.9 in adult 05/25/2024 Pneumonia of right upper lobe due to infectious organism 05/23/2024 Anxiety 11/23/2021 Iron deficiency anemia 06/26/2021 Type 2 diabetes mellitus wit hout complication, without long-term current use of insulin 02/21/2019 Mixed hyperlipidemia 08/15/2016 Acquired absence of both cervix and uterus 06/14 Overview (09/16/2022): Note: MANDI - 7-12-2010 - Dr. Juan - menorrhagia Hypertension, essential Overview (09/16/2022): Hypertension Acute kidney injury Hyperglycemia Morbid obesity Ventral hernia with bowel obstruction Assessment & Plan (03/18/2020 8:14 AM CDT): Continue diet as tolerates. From my standpoint [...] to wear the abdominal binder for comfort. Weakness Resolved Problems Problem Noted Date Diagnosed Date Resolved Date Incisional hernia with obstr uction but no gangrene 02/26/2020 03/18/2020 Abdominal pannus 02/25/2020 03/18/2020 Ventral incisional hernia 02/17/2016 Overview (11/19/2016): Ventral incisional hernia Assessment & Plan (01/24/2020 11:17 AM CDT): I have had extensive talks with the patient about surgical options for correcting this hernia. I have discussed correcting this robotically with a much larger overlap when he comes to the mesh coverage. I have also discussed correcting this via an open approach with potential component separation. I have also discussed given her morbid obesity and that this is already a recurrent hernia, any weight loss going forward would only help to limit the risk of future recurrence as well as make the surgery easier. I am going to send a referral to Plastic surgery to see if they feel like a component separation would be beneficial to try and take as much tension off of her abdominal wall as possible. If they agree I favor this approach over the redo robotic way. She is in understanding. We will touch base with her again once she has seen Plastic surgery Severe sepsis 03/18/2020 Cholecystitis 03/18/2020 Social History Tobacco Use Types Packs/Day Years Used Date Smoking Tobacco: Former Cigarettes 1 0.7 1 - 1993 Smokeless Tobacco: Never Tobacco Cessation:Counseling Given: Not Answered Alcohol Use Standard Drinks/Week Comments No 0 (1 standard drink = 0.6 oz pur e alcohol) AUDIT-C Answer Date Recorded Q1: How often do you have a drink containing alcohol? Never 05/23/2024 Q2: How many drinks containi ng alcohol do you have on a typical day when you are drinking? Patient does not drink Q3: How often do you have si x or more drinks on one occasion? Never 05/23/2024 PHQ-2 Answer Date Recorded PHQ-2 Total Score (If total score is 3 or more points, staff should administer the PHQ-9) 0 03/07/2020 Personal Safety Answer Date Recorded Have you ever been in or are you currently in a harmful physical or emotional relationship or is someone making you feel afraid or unsafe? Denies 05/23/2024 Comments No Sex and Gender Information Value Date Recorded Sex Assigned at Not on file Legal Sex Female 8:58 PM BANANA EXPERT Gender Identity Not on file Sexual Orientation Not on file Last Filed Vital Signs Vital Sign Reading Time Taken Comments Blood Pressure 149/95 09/10/2024 2:21 PM BANANA EXPERT Pulse 113 09/10/2024 2:21 PM BANANA EXPERT Temperature 36.2 C (97.2 F) 06/20/2024 10:44 AM BANANA EXPERT Respiratory Rate 20 05/28/2024 3:18 PM CDT Oxygen Saturation 92% 09/10/2024 2:21 PM BANANA EXPERT Inhaled Oxygen Concentration - - Weight 141.3 kg (311 lb 9.6 oz) 09/10/2024 2:21 PM BANANA EXPERT Height 170.2 cm (5' 7.01) 09/10/2024 2:21 PM CS T Body Mass Index 48.79 09/10/2024 2:21 PM BANANA EXPERT Plan of Treatment Not on file Medical Devices Implanted Type Area Curator Of Collections Device Identifier Shelf Expiration Date Model / Serial / Lot [employer]/C R Bard [id number] Mesh Square [id number] Surgical Phasix [id number] tyrate Full Resorbable Knit Monofilament Scaffold Hernia Repair - [id number] Implanted:Qty: 1 on 02/26/2020 by Abel Huynh III, MD at [facility] N/A: Abdomen [employer] Bard 05/12/2020 [id number] / / [id number] Description:Retro-rectus Procedures Procedure Name Priority Date/Time Associated Diagnosis Comments EGFR Routine 05/28/2024 3:14 AM CDT HEMOGLOBIN A1C Add-On 02/26/2020 3:47 AM CDT SCREENING MAMMOGRAM BILATERAL W JAY JAY Schedule Routine, Read Routine (OP Routine) 01/30/2018 9:31 AM CDT Encounter for screening mammogram for malignant neoplasm of breast from Last 3 Months or Most Recently Relevant to Health Maintenance Results * eGFR (05/28/2024 3:14 AM CDT) eGFR >90 >=60 mL/min/1. 73 m2 Comment: Interpretive Data Reference Interval Normal >/= 90 mL/min/1.73m2 Mildly decreased* 60 - 89 mL/min/1.73m2 Mildly to moderately decreased 45 - 59 mL/min/1.73m2 Moderately to severely decreased 30 - 44 mL/min/1.73m2 Severely decreased 15 - 29 mL/min/1.73m2 Kidney Failure < 15 mL/min/1.73m2 *Relative to young adult level Estimated glomerular filtration rate is determined by the 2020 CKD-EPI equation recommended by the National Kidney Foundation (A Unifying Approach to GFR Estimation: Recommendations of the NKF-ASK Task Force on Reassessing the Inclusion of Race in Diagnosing Kidney Disease, JASN 2020). The CKD-EPI equation should not be used for patients with unstable renal function and has not been validated in children and those over 70. Current interpretive data was last reviewed 2021. Blood 05/28/2024 3:14 AM CDT 05/28/2024 3:38 AM CDT us Darling Luis MD LAB BLOOD ORDERABLES Fin al Result [facility] [address] Department [place] [address] * (ABNORMAL) Hemoglobin A1c (02/26/2020 3:47 AM CDT) Hgb A1C 10.8(H) 4.0 - 5.6 % [facility] ([facility]) Estimated Average Glucose 263 mg/dL [facility]) Comment: The ADA recommends reporting an estimated Average Glucose (eAG) with all Hemoglobin A1c results using the equation derived from a study of 507 normal and diabetic adults. Minority populations were underrepresented and children were not included. (Diabetes Care 31:2560-4433, 2008). The eAG is not equivalent to a fasting glucose. Blood specimen (specimen) 02/26/2020 3:47 AM CDT 02/26/2020 4:03 AM CDT us Pino Bartholomew MD LAB BLOOD ORDERABLES Final Re sult [facility] [address] [facility] Department [place] [address] * Screening Mammogram Bilateral W Jay Jay (01/30/2018 9:31 AM CDT) Anatomical Region Laterality Modality Breast Bilateral Mammography 01/30/2018 9:41 AM CDT Impressions 01/30/2018 9:45 AM CDT 1. NO DEFINITIVE MAMMOGRAPHIC EVIDENCE OF MALIGNANCY. 2. ANNUAL FOLLOW-UP RECOMMENDED. BI-RADS 1 Electronically signed by: Fidel Whitaker M.D Narrative 01/30/2018 9:45 AM CDT SCREENING MAMMOGRAM BILATERAL W JAY JAY HISTORY: Encounter for screening mammogram for malignant neoplasm of breast. TECHNIQUE: 2 views of each breast were obtained with bilateral breast tomosynthesis. COMPARISON: 01/17/2017. FINDINGS: The breast are predominantly fatty replaced. No suspicious mass or calcification is seen to suggest mammographic evidence of malignancy. Small clip medial left breast from prior biopsy. Digital technology was employed plus computer aided detection software (R2) was utilized in interpretation of these images. This facility utilizes a reminder system to notify patient's of yearly mammograms. us Camille Juan MD IMG MAMMO PROCEDURES Fin al Result from Last 3 Months or Most Recently Relevant to Health Maintenance Insurance [place] [id number] [facility] CHOICE PLUS [place] [id number] Advance Directives For more information, please contact: [phone] * Full Code (Latest Code Status on File) Date Activated Date Inactivated Comments 05/23/2024 11:26 PM 05/28/2024 9:06 PM * Full Code Date Activated Date Inactivated Comments 02/25/2020 11:42 PM 03/09/2020 2:22 AM * Full Code Date Activated Date Inactivated Comments 02/25/2020 9:33 PM 02/25/2020 11:42 PM Care Teams Flight Dispatcher Relationship Specialty Start Date End Date Donaldo Chavez MD PCP - General 03/02/16 Michael Mckoy MD Consulting Physician General Surgery 03/08/20 Alfa Alvarez MD [address] [place] [address] [place] [address] Consulting Physician Pulmonary Disease 05/28/24 Tara López MD [address] [place] [address] [place] [address] Consulting Physician Sleep Medicine 05/28/24
--- OUTSIDE RECORDS SUMMARY | 2025-02-13 08:55 | XMS_ITS | Encounter Summary ---
Author Organization [facility] Address [address] [place] [address] Phone Care Team Providers Care Marketing Teacher Name Role Phone Donaldo Chavez MD Primary Care Provider [phone] Camille Juan MD Unavailable [phone] Martín Morales MD Unavailable Tara López MD Unavailable Reason for Visit * Reason Comments Medication Refill Encounter Details Date Type Department Care Team (Late st Contact Info) Description 05/30/2023 Refill [facility] - Primary Care - [place] [address] [place] [address] Donaldo Chavez MD [address] [place] [address] Medication Refill Social History Tobacco Use Types Packs/Day Years Used Date Smoking Tobacco: Former Cigarettes 1 17 - 2008 Smokeless Tobacco: Never Alcohol Use Standard Drinks/Week Comments No 0 (1 standard drink = 0.6 oz pur e alcohol) Social PHQ-2 Answer Date Recorded Total Score - Questions 1-9 0 11/0 03/2022 Education Answer Date Recorded What is the highest level of school you have completed or the highest degree you have received? Associate degree: occupational, technical, or vocational program 01/04/2023 Sexually Active Control Partners Comments Yes Male Comments No Sex and Gender Information Value Date Recorded Sex Assigned at Female 07/23/2024 5:47 PM FREIGHT BREAKER Legal Sex Female 9:39 PM CDT Gender Identity Female 07/23/2024 5:47 PM FREIGHT BREAKER Sexual Orientation Straight 07/23/2024 5: 47 PM FREIGHT BREAKER documented as of this encounter Plan of Treatment Upcoming Encounters Date Type Department Care Team (Late st Contact Info) Description 08/29/2025 8:45 AM FREIGHT BREAKER Office Visit [facility] - Primary Care - [place] [address] [place] [address] Donaldo Chavez MD [address] [place] [address] documented as of this encounter Visit Diagnoses Diagnosis Hypertension, essential Unspecified essential hypertension documented in this encounter Additional Health Concerns Assessment Noted Time PHQ-9 Depression Total Score: 0 06/22/20 22 11:00 AM FREIGHT BREAKER documented as of this encounter Care Teams Marketing Teacher Relationship Specialty Start Date End Date Donaldo Chavez MD [address] [place] [address] PCP - General Internal Medicine 06/30/15 Camille Juan MD [address] [place] [address] Consulting Physician Obstetrics & Gynecology 01/24/17 Martín Larios MD #2 [facility] [address] [place] [address] Consulting Physician Colon and Rectal Surgery 11/25/22 Tara López MD [address] [place] [address] [facility] [address] [place] [address] Consulting Physician Sleep Medicine 02/07/25 documented as of this encounter
--- OUTSIDE RECORDS SUMMARY | 2025-02-13 08:55 | XMS_ITS | Clinical Summary ---
Author Organization [facility] Address [address] [place] [address] Care Team Providers Care Comb Setter Name Role Phone Donaldo Chavez MD Primary Care Provider + Michael Mckoy MD Unavailable Alfa Alvarez MD Unavailable Tara López MD Unavailable Allergies [...] Plastic surgery Severe sepsis 03/18/2020 Cholecystitis 03/18/2020 Encounters Date Type Department Care Team Description 11/26/2024 Telephone [facility] [address] [place] [address] Luz Coppola MA 11/23/2024 Documentation [facility] [address] [place] [id number] Trent Vazquez, CONSULTING TECHNICAL MANAGER 11/22/2024 1:15 PM CDT E-Visit [facility] [address] [place] [address] Estelita Vazquez NP Your Medications 11/22/2024 Patient Self-Triage [facility] [address] [place] [address] Mychart, Generic Provider from Last 3 Months Surgical History Surgery Date Site/Laterality Comments OTHER SURGICAL HISTORY left oopherectomy SECTION section x 3 OTHER SURGICAL HISTORY 08/15/2015 - 08/14/2016 Lap repair of incarcerated ventral incisional hernia x 3 with mesh OOPHORECTOMY HYSTERECTOMY 02/12/2011 Hysterectomy BREAST BIOPSY 08/15/2016 - 08/14/2017 Left benign Medical History Medical History Date Comments Hypertension Hypertension Smoking previous Gastritis Family History Medical History Relation Name Comments Hypertension Other Hypertension; Relation Name Status Comments Other Social History Tobacco Use Types Packs/Day Years [...] on file Legal Sex Female 8:58 PM [employer] Gender Identity Not on file Sexual Orientation Not on file Obstetrics History Para Term AB IAB SAB Ectopic Multiple Livin g Live Births 3 3 3 Date Outcome GA Total Labor Labor/2nd/3rd Weight Sex Type Anes PTL Kaela A1 A5 Name Clin Term Term Term Last Filed Vital Signs Vital Sign Reading Time Taken Comments Blood Pressure 149/95 09/10/2024 2:21 PM [employer] Pulse 113 09/10/2024 2:21 PM [employer] Temperature 36.2 C (97.2 F) 06/20/2024 10:44 AM [employer] Respiratory Rate 20 05/28/2024 3:18 PM CDT Oxygen Saturation 92% 09/10/2024 2:21 PM [employer] Inhaled Oxygen Concentration - - Weight 141.3 kg (311 lb 9.6 oz) 09/10/2024 2:21 PM [employer] Height 170.2 cm (5' 7.01) 09/10/2024 2:21 PM CS T Body Mass Index 48.79 09/10/2024 2:21 PM [employer] Plan of Treatment Health Maintenance Due Date Last Done Comments Albumin Creatinine Ratio, Urine 1976 Colon Cancer Screening-Colonoscopy 1976 Hepatitis C Screening 1976 Dilated Eye Exam 1976 Foot Exam 1976 Hepatitis B Screening 1994 Regular Well Visit/Exam 18-64 1994 Breast Cancer Screening-Mammogram 01/30/2019 01/30/2018, 01/30/2018, 02/11/2017, Additional history exists Pneumococcal vaccine <65 (2 of 2 - PCV) 07/11/2020 07/11/2019 Hemoglobin A1C 08/28/2020 02/26/2020 Depression Screening 02/24/2021 02/25/2020 Covid-19 Vaccine (3 - 2023-2 5 season) 2024 11/03/2020, 09/25/2020 Influenza Vaccine (#1) 2025 , 07/15/2023, 06/22/2022, Additional history exists eGFR 05/28/2025 05/28/2024, 05/15, 05/25/2024, Additional history exists Lipid Panel 08/09/2025 08/09/2024, 12/0 08/2022, 01/11/2023, Additional history exists DTaP/Tdap/Td Vaccine (2 - Td or Tdap) 02/19/2029 02/19/2019 Medical Devices Implanted Type Area Housing Coordinator Device Identifier Shelf Expiration Date Model / Serial / Lot [employer]/C R Bard [id number] Mesh Square [id number] Surgical Phasix [id number] tyrate Full Resorbable Knit Monofilament Scaffold Hernia Repair - [id number] Implanted:Qty: 1 on 02/26/2020 by Abel Huynh III, MD at [facility] N/A: Abdomen [employer] Bard 05/12/2020 [id number] / / [id number] Description:Retro-rectus Procedures Procedure Name Priority Date/Time Associated [...] LAB BLOOD ORDERABLES Fin al Result REHAN BRAN [place]) [address] Department [place] [address] * (ABNORMAL) Hemoglobin A1c (02/26/2020 3:47 AM CDT) Hgb A1C 10.8(H) 4.0 - 5.6 % REHAN BRAN ([place]) Estimated Average Glucose 263 mg/dL REHAN BRAN ([place]) Comment: The ADA recommends reporting an estimated Average Glucose (eAG) with all Hemoglobin A1c results using the equation derived from a study of 507 normal and diabetic adults. Minority populations were underrepresented and children were not included. (Diabetes Care 31:2682-2389, 2008). The eAG is not equivalent to a fasting glucose. Blood specimen (specimen) 02/26/2020 3:47 AM CDT 02/26/2020 4:03 AM CDT us Pino Bartholomew MD LAB BLOOD ORDERABLES Final Re sult REHAN BRAN ([place]) [address] Department [place] [address] * Screening Mammogram Bilateral W [place] (01/30/2018 9:31 AM CDT) Anatomical Region Laterality Modality Breast Bilateral Mammography 01/30/2018 9:41 AM CDT Impressions 01/30/2018 9:45 AM CDT 1. NO DEFINITIVE MAMMOGRAPHIC EVIDENCE OF MALIGNANCY. 2. ANNUAL FOLLOW-UP RECOMMENDED. BI-RADS 1 Electronically signed by: Preston Lopez 01/30/2018 9:45 AM CDT SCREENING MAMMOGRAM BILATERAL [...] Most Recently Relevant to Health Maintenance Insurance [facility] CHO[facility] PL[facility] Advance Directives For more information, please contact: [phone] * Full Code (Latest Code Status on File) Date Activated Date Inactivated Comments 05/23/2024 11:26 PM 05/28/2024 9:06 PM * Full Code Date Activated Date Inactivated Comments 02/25/2020 11:42 PM 03/09/2020 2:22 AM * Full Code Date Activated Date Inactivated Comments 02/25/2020 9:33 PM 02/25/2020 11:42 PM Care Teams Comb Setter Relationship Specialty Start Date End Date Donaldo Chavez MD PCP - General 03/02/16 Michael Mckoy MD Consulting Physician General Surgery 03/08/20 Alfa Alvarez MD [address] [place] [address] [place] [address] Consulting Physician Pulmonary Disease 05/28/24 Tara López MD [address] [place] [address] [place] [address] Consulting Physician Sleep Medicine 05/28/24
== END 2025-02-13 08:50 | disposition home or self-care (01) ==
LOC: ANHBWCAUD 08:49
PROVIDERS: PCP Internal Medicine; Visit Provider Otolaryngology
DX: H91.93 Unspecified hearing loss, bilateral (principal); H69.93 Unspecified Eustachian tube disorder, bilateral
CPT/HCPCS: 92557; 92567